=== PATIENT | female | born 1975 | race Caucasian/White ===

== ENCOUNTER 2019-07-21 13:18 | Outpatient (CLI) | payer OTHER | END 2019-07-21 14:30 | disposition home or self-care (01) | LOC: PRENATAL 13:18 | DX: O35.3XX1 Maternal care for (suspected) damage to fetus from viral disease in mother, fetus 1 (principal); O09.522 Supervision of elderly multigravida, second trimester ==

== ENCOUNTER 2019-12-03 12:53 | Outpatient (CLI) | payer OTHER ==
[2019-12-03] MEDS ORDERED: PRENATAL TABLE1 EAC1 PO (17:33)
[2019-12-03] MEDS ORDERED: IRON1TAB4 PO (17:34)
== END 2019-12-03 13:18 | disposition home or self-care (01) ==
LOC: NST 12:53
DX: Z34.83 Encounter for supervision of other normal pregnancy, third trimester (principal)

== ENCOUNTER 2019-12-03 16:54 | Inpatient (IN) | payer OTHER ==
[~2019-12-03] VITALS: Ht 157.5 cm; Wt 68.0 kg
[2019-12-03] MEDS ORDERED: PRENATAL TABLE1 EAC1 PO (17:33)
[2019-12-03] MEDS ORDERED: IRON1TAB4 PO (17:34)
[2019-12-05] MEDS ORDERED: Dermoplast SPRAY TOP ×2 (14:43)
[2019-12-05] MEDS ORDERED: Proctofoam RECTAL ×2 (14:43)
[2019-12-05] MEDS ORDERED: OXYC1TAB9 PO ×2 (14:43)
[2019-12-05] MEDS ORDERED: DOCUSATE SODIU100 MG PO ×2 (14:43)
== END 2019-12-05 14:58 | disposition home or self-care (01) | DRG 807 ==
LOC: LDR 16:54 → SURG-SUITE 16:54
PROVIDERS: ADMIT Obstetrics & Gynecology
PROC: 10E0XZZ Delivery of Products of Conception, External Approach (ICD-10-PCS; principal; 2019-12-03)
PROC: 0W8NXZZ Division of Female Perineum, External Approach (ICD-10-PCS; 2019-12-03)
PROC: 4A1HXCZ Monitoring of Products of Conception, Cardiac Rate, External Approach (ICD-10-PCS; 2019-12-03)
DX: O80 Encounter for full-term uncomplicated delivery (principal); Z37.0 Single live birth; Z3A.38 38 weeks gestation of pregnancy; Z22.330 Carrier of Group B streptococcus